=== PATIENT | female | born 1960 ===

== ENCOUNTER 2020-08-25 08:00 | Outpatient (CLI) | payer OTHER | END 2020-08-25 08:30 | disposition home or self-care (01) | LOC: PPH VACUNA 08:00 | DX: Z23 Encounter for immunization (principal) ==

== ENCOUNTER 2020-09-11 18:35 | Emergency (ER) | payer OTHER ==
[~2020-09-11] VITALS: Ht 167.6 cm; Wt 65.8 kg
== END 2020-09-11 22:55 | disposition home or self-care (01) ==
LOC: ER 18:35
DX: S50.11XA Contusion of right forearm, initial encounter (principal); S30.0XXA Contusion of lower back and pelvis, initial encounter; W18.39XA Other fall on same level, initial encounter; Y93.89 Activity, other specified; Y92.098 Other place in other non-institutional residence as the place of occurrence of the external cause; Y99.8 Other external cause status

== ENCOUNTER 2020-10-09 12:34 | Outpatient (CLI) | payer OTHER | END 2020-10-09 12:35 | disposition home or self-care (01) | LOC: NUCLEAR 12:34 | DX: M81.0 Age-related osteoporosis without current pathological fracture (principal); Z13.820 Encounter for screening for osteoporosis ==

== ENCOUNTER → 2020-10-29 12:42 | Outpatient (CLI) | payer OTHER | END | disposition home or self-care (01) | LOC: LAB 12:42 | DX: N39.0 Urinary tract infection, site not specified (principal) ==